=== PATIENT | female | born 1965 | race Caucasian/White ===

== ENCOUNTER 2020-01-13 06:13 | Inpatient (IN) | payer OTHER ==
--- NOTE | 2020-01-10 17:29 | NUR ---
LABS RESULT-CBC,CMP, LIPID PANEL,URINALYSIS, PT/INR, PTT COPIES GIVEN TO ANESTHESIA FOR REVIEW (GIVEN TO ELPIDIO 01/10/20 AT 1730).
[~2020-01-13] VITALS: Ht 157.5 cm; Wt 96.2 kg
[2020-01-13 06:44] VITALS: BP 142/81
--- NOTE | 2020-01-13 13:00 | NUR ---
RECEIVED FROM OR VIA BED S/P LEFT ARTHROPLASTY, SEEN AWAKE, ALERT, ORIENTEDX4. NO SOB OR RESP DISTRESS NOTED ON ROOM AIR, O2SAT 94% ON ROOM AIR. LUNG SOUND CTA BILATERALLY. MED/SURG PATIENT. DENIES NAUSEA. DRGS TO LEFT HIP CDI. ABDUCTOR TO BLE INPLACE. ON REGULAR DIET. S/L TO RAC FLUSHED PATENT. BURCH CATH DRAINING TO GRAVITY YELLOW URINE IN COLOR. SCD TO INPLACE. ORIENTING TO ROOM ENVIRONMENT. CALL LIGHT INSTRUCTED AND PLACED WITHIN EASY REACH, SIDERAILS UP X2.
--- NOTE | 2020-01-13 15:10 | NUR ---
OXYCODONE 5MG PO GIVEN FOR LEFT HIP PAIN.
--- NOTE | 2020-01-13 16:30 | NUR ---
INSTRUCTED HOW TO USE INTENSIVE SPIROMETER, PATIENT VERBALIZED UNDERSTANDING.
[2020-01-13 16:56] VITALS: BP 100/54
[2020-01-13 18:29] LABS: CALCIUM 9.4 mg/dL (8.5-10.1); CARBON DIOXIDE 27.3 mmol/L (21-32); CHLORIDE SERUM 103 mmol/L (98-107); GFR1 > 60 mL/min; GLUCOSE SERUM 119 mg/dL (74-106); POTASSIUM SERUM 3.8 mmol/L (3.5-5.1); SODIUM SERUM 138 mmol/L (136-145)
[2020-01-13 18:31] LABS: BASOPHIL % 0.3 % (0-2); PLATELET COUNT 201 x10^3mcL (130-400)
--- NOTE | 2020-01-13 18:44 | NUR ---
ABLE TO TRANSFER SELF FROM BED STANDING ON THE FLOOR WITH MINIMAL ASSISTANCE. DENIES NAUSEA, STATED PAIN IS TOLERABLE.
--- NOTE | 2020-01-13 20:00 | NUR ---
Pt received in bed, awake and watching TV S/P left ankle wound debridement, complaining of pain to left ankle Condition stable No signs of distress noted
[2020-01-13 20:04] VITALS: BP 96/54
[2020-01-14 04:29] VITALS: BP 120/65
[2020-01-14 06:32] LABS: PLATELET COUNT 160 x10^3mcL (130-400); RED CELL DISTRIBUTION WIDTH 12.9 % (11.5-14.5)
[2020-01-14 06:41] LABS: CALCIUM 8.6 mg/dL (8.5-10.1); CARBON DIOXIDE 27.4 mmol/L (21-32); CHLORIDE SERUM 100 mmol/L (98-107); CREATININE SERUM 0.9 mg/dL (0.6-1.0); GFR1 > 60 mL/min; GLUCOSE SERUM 164 mg/dL (74-106); POTASSIUM SERUM 3.8 mmol/L (3.5-5.1); SODIUM SERUM 134 mmol/L (136-145)
--- NOTE | 2020-01-14 06:48 | NUR ---
Pt alert, slept overnight Condition stable No signs of distress noted Pain management ongoing, Oxy and tylenol given, pain controlled S/L Left hip arthroplasty, dressing CDI Ancef completed, afebrile, vitals stable
--- NOTE | 2020-01-14 07:26 | NUR ---
Pt refused to remove melton this am, said that she will remove it later befor PT, endorsed to morning RN
--- NOTE | 2020-01-14 08:00 | NUR ---
RECEIVED PT FROM ERP DEVELOPER NURSE. PT IS POST OP DAY 2 FOR LEFT HIP ARTHOPLASTY. A/O X 4. C/O PAIN TO HER LEFT HIP. 10/14. OXYCODONE WAS GIVEN PER EMAR. DENIES CP OR SOB. PERIPHERAL PULSES ARE PALPABLE. NO EDEMA NOTED. LUNG SOUNDS CTA. BS ACTIVE. D/C BURCH. VOIDED WITHOUT DIFFICULTY. WILL FOLLOW TOTAL HIP ARTHOPLASTY PRECATION. PT IS UP IN CHAIR TO MEALS. WB TOLERATED TO LLE. SCD'S IS ON WHILE IN BAD. AMBULATE WITH PT AND WALKER. IV SITE TO [facility] CDI. PATENT, NO ERYTHEMA OR PAIN NOTED. BED IN LOW POSITION, BED RAILS X2, CALL LIGHT WITHIN REACH.
[2020-01-14 08:18] VITALS: BP 126/70
--- NOTE | 2020-01-14 08:20 | NUR ---
AFTER EATING BREAKFAST SITTING ON SIDE OF BED, PATIENT AMBULATED TO BATHROOM AND BACK TO BED USING A WALKER. GOOD ACTIVITY TOLERANCE. BURCH CATHETER WAS REMOVED INTACT WITH BALLOON DEFLATED. ON RETURN TO BED, WEDGE PILLOW PLACED IN BETWEEN LEGS ORDERED. SCDS IN PLACE. PATIENT ENCOURAGED IN USE OF INSENTIVE SPIROMETER.
--- NOTE | 2020-01-14 09:15 | NUR ---
RECEIVED CALL FROM [facility]OLOG[facility]. PATIENT'S POST-OP X-RAYS OF HIP AND PELVIS HAD ALREADY BEE DONE AND REPORTS ARE NOW AVAILABLE.
[2020-01-14 10:52] LABS: MONOCYTE 8 % (0-7); SEGMENTED NEUTROPHILS 70 % (37-75); rbc morphology (normal/abnorm) NORMAL (NORMAL)
--- NOTE | 2020-01-14 11:41 | NUR ---
RECEIVED CALL FROM DR MADDOX. DR UPDATED ON PATIENT CONDITION, LAB RESULTS - H/H, WBC 15.2 AND PHYSICAL THRAPY. PATIENT IS OK TO DISCHARGE HOME TODAY. SHE HAS ALREADY BEEN SUPPLIED WITH HOME MEDS PRESCRIPTION AND WALKER AND HAS ARRANGEMENTS FOR POST-OP FOLLOW-UP AND PHYSICAL THERAPY. SPOKE WITH PATIENT WHO IS AGREEABLE AND EAGER TO BE DISCHARGED HOME TODAY. HAS VOIDED POST BURCH CATHETER REMOVAL AND HAS BEEN SEEN BY PHYSICAL THERAPY.
[2020-01-14 11:54] VITALS: BP 110/53
[2020-01-14 12:42] VITALS: BP 110/53
[2020-01-14 12:46] VITALS: BP 110/53
--- NOTE | 2020-01-14 13:46 | NUR ---
AT 1320 - PRINTED DISCHARGE INSTRUCTIONS GIVEN AND EXPLAINED TO PATIENT. IV CATHETER REMOVED INTACT. PREPARED FOR DISCHARGE. AT 1335 - DISCHARGED HOME WITH FAMILY. TAKEN TO CAR IN WHEELCHAIR BY NURSE.
== END 2020-01-14 15:28 | disposition home or self-care (01) | DRG 470 ==
LOC: MU 06:13
PROVIDERS: ADMIT Orthopaedic Surgery; ATTEND Orthopaedic Surgery
PROC: 0SRB03Z Replacement of Left Hip Joint with Ceramic Synthetic Substitute, Open Approach (ICD-10-PCS; principal; 2020-01-13 07:30)
DX: M16.12 Unilateral primary osteoarthritis, left hip (principal); N39.0 Urinary tract infection, site not specified; M06.9 Rheumatoid arthritis, unspecified; F32.9 Major depressive disorder, single episode, unspecified; E66.9 Obesity, unspecified; J45.909 Unspecified asthma, uncomplicated; Z90.710 Acquired absence of both cervix and uterus; Z79.899 Other long term (current) drug therapy; Z79.891 Long term (current) use of opiate analgesic; Z79.01 Long term (current) use of anticoagulants; Z79.82 Long term (current) use of aspirin; Z88.2 Allergy status to sulfonamides; Z88.8 Allergy status to other drugs, medicaments and biological substances; Z63.4 Disappearance and death of family member; Z20.828 Contact with and (suspected) exposure to other viral communicable diseases
CPT/HCPCS: 97116-GP; 97530-GP; G0378; J0690; J1720; J1885; J2270; J2274; J2550; J3010; J3490; J7120; J7512; Q0092; Q0163